=== PATIENT | male | born 1970 | race Caucasian/White ===

== ENCOUNTER 2022-02-11 10:10 | Inpatient (IN) | payer OTHER ==
[~2022-02-11] VITALS: Ht 167.6 cm; Wt 91.9 kg
[2022-02-11 11:01] LABS: BASO # 0.1 x10^3/uL (0.0-0.2); BASO % 1 % (0-3); EOS # 0.3 x10^3/uL (0.0-0.7); EOS % 3 % (0-3); HEMATOCRIT 39.1 % (39.0-53.0); HEMOGLOBIN 13.1 g/dL (13.0-17.5); LYMPH # 1.4 x10^3/uL (1.0-4.8); LYMPH % 14 % (24-48); MEAN CORPUSCULAR HEMOGLOBIN 28 pg (25-35); MEAN CORPUSCULAR HGB CONC 34 g/dL (31-37); MEAN CORPUSCULAR VOLUME 82 fL (79-100); MONO # 0.9 x10^3/uL (0.0-1.1); MONO % 10 % (0-9); NEUT # 6.9 x10^3/uL (1.8-7.7); NEUT % 72 % (31-73); PLATELET COUNT 268 x10^3/uL (140-400); RED BLOOD COUNT 4.75 x10^6/uL (4.30-5.70); RED CELL DISTRIBUTION WIDTH 14.2 % (11.5-14.5); WHITE BLOOD COUNT 9.7 x10^3/uL (4.0-11.0)
[2022-02-11 11:15] LABS: CREATININE 1.1 mg/dL (0.7-1.3); GFR 70.9
[2022-02-11 11:19] LABS: ACETAMIN < 2 mcg/ml (10-30); ETHANOL < 10 mg/dL (0-10)
[2022-02-11 11:22] LABS: ALBUMIN 3.7 g/dL (3.4-5.0); ALBUMIN/GLOBULIN RATIO 0.7 (1.0-1.7); TOTAL BILIRUBIN 0.4 mg/dL (0.2-1.0); TOTAL PROTEIN 8.9 g/dL (6.4-8.2)
[2022-02-11 11:35] LABS: BARBITURATES NEG (NEG); BENZODIAZEPINES POS (NEG); CANNABINOIDS NEG (NEG); COCAINE NEG (NEG); METHADONE NEG (NEG); OPIATES NEG (NEG); PHENCYCLIDINE NEG (NEG)
[2022-02-11 11:36] LABS: AMPHETAMINE/METHAMPHETAMINE NEG (NEG); HYALINE CASTS, URINE MODERATE /HPF
[2022-02-11 11:37] LABS: BACTERIA,URINE 0 /HPF (0-FEW); RBC,URINE 0 /HPF (0-2)
[2022-02-11] MEDS ORDERED: OLANZapine IM 10 MG VIAL. IM ONE (12:30)
--- NOTE | 2022-02-11 12:31 | PHYS DOC ---
Past Medical History Past Surgical History: Coronary Bypass Surgery Smoking Status: Former Smoker Alcohol Use: Sober Additional Information: sober x1 month due to being in a facility. Social History Narrative: Sober x1 month due to being in facility General Adult EDM: Chief Complaint: MEDICAL CLEARANCE HPI: HPI: Patient is a 51 year old male who presents with grandiose thoughts. Patient left AGAINST MEDICAL ADVICE from [facility] down the street from our facility. Patient states that he is looking for his cell phone and other possessions that he lost when he had a CABG done last month. Patient states that he does not want to stay however patient was seen and evaluated in the emergency department by myself. Patient with grandiose thoughts stating that he created infinite energy that is located at his house. Reportedly, patient was being seen for rehab at [facility] after a CABG. Patient making multiple odd statements, stating that people are persecuting him and pursuing him. 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 Patient states he does not have a psychiatrist however he almost is 1. Patient states that he would just like to go home, however, given patient's mental state and reportedly that he does not have utilities at his house, I thought it would be necessary to evaluate him prior to deciding disposition. Review of Systems: Review of Systems: Constitutional: Denies fever or chills. [] Eyes: Denies change in visual acuity. [] HENT: Denies nasal congestion or sore throat. [] Respiratory: Denies cough or shortness of breath. [] Cardiovascular: Denies chest pain or edema. [] GI: Denies abdominal pain, nausea, vomiting, bloody stools or diarrhea. [] : Denies dysuria. [] Musculoskeletal: Denies back pain or joint pain. [] Integument: Denies rash. [] Neurologic: Denies headache, focal weakness or sensory changes. [] Endocrine: Denies polyuria or polydipsia. [] Lymphatic: Denies swollen glands. [] Psychiatric: Denies depression or anxiety. [] Heart Score: C/O Chest Pain: No Risk Factors: Risk Factors: DM, Current or recent (<one month) smoker, HTN, HLP, family history of CAD, obesity. Risk Scores: Score 0 - 3: 2.5% MACE over next 6 weeks - Discharge Home Score 4 - 6: 20.3% MACE over next 6 weeks - Admit for Clinical Observation Score 7 - 10: 72.7% MACE over next 6 weeks - Early Invasive Strategies Allergies: Allergies: Allergies Coded Allergies Type Severity Reaction Last Updated Verified No Known Drug Allergies 02/11/22 No Physical Exam: PE: Constitutional: Well developed, well nourished, no acute distress, non-toxic appearance. [] HENT: Normocephalic, atraumatic, bilateral external ears normal, oropharynx moist, no oral exudates, nose normal. [] Eyes: PERRLA, EOMI, conjunctiva normal, no discharge. [] Neck: Normal range of motion, no tenderness, supple, no stridor. [] Cardiovascular:Heart rate regular rhythm, no murmur [] Lungs & Thorax: Bilateral breath sounds clear to auscultation [] Abdomen: Bowel sounds normal, soft, no tenderness, no masses, no pulsatile masses. [] Skin: Warm, dry, no erythema, no rash. [] Back: No tenderness, no CVA tenderness. [] Extremities: No tenderness, no cyanosis, no clubbing, ROM intact, no edema. [] Neurologic: Alert and oriented X 3, normal motor function, normal sensory function, no focal deficits noted. [] Psychologic: Affect flat, judgement poor, mood normal. [] Current Patient Data: Labs: Laboratory Tests Test 02/11/22 10:50 02/11/22 11:20 White Blood Count 9.7 x10^3/uL (4.0-11.0) Red Blood Count 4.75 x10^6/uL (4.30-5.70) Hemoglobin 13.1 g/dL (13.0-17.5) Hematocrit 39.1 % (39.0-53.0) Mean Corpuscular Volume 82 fL (79-100) Mean Corpuscular Hemoglobin 28 pg (25-35) Mean Corpuscular Hemoglobin Concent 34 g/dL (31-37) Red Cell Distribution Width 14.2 % (11.5-14.5) Platelet Count 268 x10^3/uL (140-400) Neutrophils (%) (Auto) 72 % (31-73) Lymphocytes (%) (Auto) 14 % (24-48) L Monocytes (%) (Auto) 10 % (0-9) H Eosinophils (%) (Auto) 3 % (0-3) Basophils (%) (Auto) 1 % (0-3) Neutrophils # (Auto) 6.9 x10^3/uL (1.8-7.7) Lymphocytes # (Auto) 1.4 x10^3/uL (1.0-4.8) Monocytes # (Auto) 0.9 x10^3/uL (0.0-1.1) Eosinophils # (Auto) 0.3 x10^3/uL (0.0-0.7) Basophils # (Auto) 0.1 x10^3/uL (0.0-0.2) Sodium Level 142 mmol/L (136-145) Potassium Level 4.0 mmol/L (3.5-5.1) Chloride Level 100 mmol/L (98-107) Carbon Dioxide Level 31 mmol/L (21-32) Anion Gap 11 (6-14) Blood Urea Nitrogen 14 mg/dL (8-26) Creatinine 1.1 mg/dL (0.7-1.3) Estimated GFR (Cockcroft-Gault) 70.9 BUN/Creatinine Ratio 13 (6-20) Glucose Level 106 mg/dL (70-99) H Calcium Level 10.0 mg/dL (8.5-10.1) Total Bilirubin 0.4 mg/dL (0.2-1.0) Aspartate Amino Transferase (AST) 31 U/L (15-37) Alanine Aminotransferase (ALT) 21 U/L (16-63) Alkaline Phosphatase 129 U/L (46-116) H Total Protein 8.9 g/dL (6.4-8.2) H Albumin 3.7 g/dL (3.4-5.0) Albumin/Globulin Ratio 0.7 (1.0-1.7) L Thyroid Stimulating Hormone (TSH) 6.438 uIU/mL (0.358-3.74) H Acetaminophen Level < 2 mcg/ml (10-30) L Acetaminophen Last Dose Date Unknown Acetaminophen Last Dose Time Unknown Ethyl Alcohol Level < 10 mg/dL (0-10) Urine Collection Type Void Urine Color (Auto) Light yellow Urine Turbidity Clear Urine pH (Auto) 7.0 (<5.0-8.0) Urine Specific [place] 1.009 (1.000-1.030) Urine Protein (Auto) 50 mg/dL (Negative) Urine Glucose (Auto)(UA) Negative mg/dL (Negative) Urine Ketones (Auto) Negative mg/dL (Negative) Urine Blood (Auto) Negative (Negative) Urine Nitrite (Auto) Negative (Negative) Urine Bilirubin (Auto) Negative (Negative) Urine Urobilinogen (Auto) Normal mg/dL (Normal) Urine Leukocyte Esterase (Auto) Negative (Negative) Urine RBC 0 /HPF (0-2) Urine WBC 1-4 /HPF (0-4) Urine Squamous Epithelial Cells Few /LPF Urine Bacteria 0 /HPF (0-FEW) Urine Hyaline Casts Moderate /HPF Urine Opiates Screen Neg (NEG) Urine Methadone Screen Neg (NEG) Urine Barbiturates Neg (NEG) Urine Phencyclidine Screen Neg (NEG) Urine Amphetamine/Methamphetamine Neg (NEG) Urine Benzodiazepines Screen Pos (NEG) Urine Cocaine Screen Neg (NEG) Urine Cannabinoids Screen Neg (NEG) Urine Ethyl Alcohol Neg (NEG) Laboratory Tests 02/11/22 10:50 Laboratory Tests 02/11/22 10:50 Vital Signs: Vital Signs Date Time Temp Pulse Resp B/P (MAP) Pulse Ox O2 Delivery O2 Flow Rate FiO2 02/11/22 11:15 79 16 154/88 (110) 99 Room Air 02/11/22 10:23 98.1 98.1 EKG: EKG: [] Radiology/Procedures: Radiology/Procedures: [] Impression: Acute psychosis Course & Med Decision Making: Course & Med Decision Making Pertinent Labs and Imaging studies reviewed. (See chart for details) Seen and evaluated by myself, 51-year-old male with undiagnosed psychiatric illness according to patient, making grandiose statements thoughts of grandeur, flight of ideas, patient not safe for discharge home. Patient will be admitted to our facility for further management as well as safe discharge. Patient is not homeless, however he is not stable enough to go home at this moment. Patient agreed to admission. Patient admitted to Dr. Emerson service. Patient hemodynamically stable at the time of admission. Dragon Disclaimer: Dragon Disclaimer: This electronic medical record was generated, in whole or in part, using a voice recognition dictation system. GABRIEL TORRES MD February 11, 2022 12:31
--- NOTE | 2022-02-11 12:48 | NUR ---
SS following for discharge planning. SS reviewed pt chart and discussed with RN. Pt left AMA from [facility]. Pt 1:1. SS was notified that pt was 1:[address] [facility]. SS met with pt in room. Pt ad monika and requires no assistive device. Pt able to report that he is in the hospital and lives in [place], [place]. Pt speaking with SS appropriately. Pt stating that he is going home and will not be admitted unless he is agreeable to be admitted. Pt stating that he needs to get home. Dr. Looney called and requested that [facility] team evaluate pt. Dr. Looney requesting that pt be admitted to [facility]. PAT team referral made and Byron coming to see pt. RN notified that pt is elopement risk. SS was notified that pt is moving to room 512. SS requested that 5th floor RN be notified in report that pt is elopement risk. Case asset management analyst notified. SS will continue to follow for discharge planning. Addendum: 02/11/22 at 1450 by FATOU HOFFMAN SS Byron from PAT team met with pt. Pt has no documented psych history and has not been seen outpatient for mental health. Byron reported that we would need to initiate a state screen to proceed further. Byron initiating state screen today. Pt politely requesting that Dr. Looney not be associated with his case. Dr. Emerson notified.
[2022-02-11 14:44] VITALS: BP 126/91
--- NOTE | 2022-02-11 15:09 | NUR ---
While doing admission assessment, rapid of covid was requested. Patient was informed of covid swab, and stated "If I find out I have covid, I'm going to jump out the window." Patient worried about medications and what might be in them.
--- NOTE | 2022-02-11 15:51 | PDOC1 ---
History and Physical Date of Admission Date of Admission DATE: 02/11/22 TIME: 15:51 Identification/Chief Complaint Chief Complaint Bizarre behavior Source Source: Caregiver, Chart review, Patient History of Present Illness History of Present Illness Mr Jc is a 51yo [employer] with PMHx alcohol use disorder, HTN, nephrolithiasis, marijuana alcohol abuse, recent ascending aortic dissection who was transferred from [facility] to [facility] on 12/18/2021 and treated for aortic dissection with Isma arch aortic replacement 26 mm graft, suspension aortic valve. With prolonged ventilatory stay and alcohol withdrawal treated for E. coli pneumonia and staph bacteremia and underwent tracheostomy on 01/02/2022 still with ventilatory wean developed a left-sided pleural effusion and chest tube placement showed significant impulsivity and was transferred to [facility] on 01/09/2022 for further vent weaning. His tracheostomy was downsized and decannulated and continue to recuperate at [facility] but showed significant impulsivity and exhibited bizarre behavior He eloped from [facility] and ran across the parking lot to our medical facility He was brought down to ED after he was found in administrative offices trying to make a phone call to have someone assist him in regrowing his teeth. In ED was noted with grandiose thoughts stating that he created infinite energy that is located at his house. He noted to ED people were persecuting him and pursuing him. He noted he has been practicing Western medicine on himself to help remove the infection from his abdomen continues to point to a small umbilical hernia. 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 Labs with WBC 9.7, Hb 13.1, platelets 268, TSH 6.4, glucose 155, albumin 3.7, LFTs within normal laboratory limits, NA 142, K4, BUN 14, CR 1.1 urine drug screen positive for benzodiazepines urinalysis bland, rapid COVID-19 negative. Past Medical History Cardiovascular: HTN Psych: Anxiety, Addictions, Depression, Panic Past Surgical History Past Surgical History Isma arch aortic replacement 26 mm graft, suspension aortic valve December 2021 Family History Family History: Hypertension Social History Smoke: 1 pack per day ALCOHOL: heavy (Whiskey up to half a liter per day) Drugs: Marijuana Current Problem List Problem List Problems Medical Problems: (1) Acute psychosis Status: Acute Current Medications Current Medications Current Medications Olanzapine (ZyPREXA IM) 10 mg 1X ONCE IM Last administered on 02/11/22at 12:45; Start 02/11/22 at 12:30; Stop 02/11/22 at 12:31; Status DC Allergies Allergies: Coded Allergies: No Known Drug Allergies (Unverified , 02/11/22) ROS General: No: Chills, Night Sweats, Fatigue, Malaise, Appetite, Other PSYCHOLOGICAL ROS: YES: Anxiety, Behavioral Disorder, Concentration difficultie , Decreased libido, Depression, Hallucinations, Irritablity, Memory difficulties , Mood Swings, Obsessive thoughts, Sleep disturbances; No: Disorientation, Hostility, Physical abuse, Sexual abuse, Suicidal ideation, Other Eyes: No Blurry vision, No Decreased vision, No Double vision, No Dry eyes, No Excessive tearing, No Eye Pain, No Itchy Eyes, No Loss of vision, No Photophobia, No Scotomata, No Uses contacts, No Uses glasses, No Other HEENT: No: Heacaches, Visual Changes, Hearing change, Nasal congestion, Nasal discharge, Oral lesions, Sinus pain, Sore Throat, Epistaxis, Sneezing, Snoring, Tinnitus, Vertigo, Vocal changes, Other ALLERGY AND IMMUNOLOGY: No: Hives, Insect Bite Sensitivity, Itchy/Watery Eyes, Nasal Congestion, Post Nasal Drip, Seasonal Allergies, Other Hematological and Lymphatic: No: Bleeding Problems, Blood Clots, Blood Trans fusions, Brusing, Night Sweats, Pallor, Swollen Lymph Nodes, Other ENDOCRINE: No: Breast Changes, Galactorrhea, Hair Pattern Changes, Hot Flashes, Malaise/lethargy, Mood Swings, Palpitations, Polydipsia/polyuria, Skin Changes, Temperature Intolerance, Unexpected Weight Changes, Other Breast: No New/Changing Breast Lumps, No Nipple changes, No Nipple discharge, No Other Respiratory: No: Cough, Hemoptysis, Orthopnea, Pleuritic Pain, Shortness of breath, SOB with excertion, Sputum Changes, Stridor, Tachypnea, Wheezing, Other Cardiovascular: No Chest Pain, No Palpitations, No Orthopnea, No Paroxysmal Noc. Dyspnea, No Edema, No Lt Headedness, No Other Gastrointestinal: Yes Abdominal Pain; No Nausea, No Vomiting, No Diarrhea, No Constipation, No Melena, No He matochezia, No Other Genitourinary: No Dysuria, No Frequency, No Incontinence, No Hematuria, No Retention, No Discharge, No Urgency, No Pain, No Flank Pain, No Other, No , No , No , No , No , No , No Musculoskeletal: Yes Gait Disturbance; No Joint Pain, No Joint Stiffness, No Joint Swelling, No Muscle Pain, No Musc ular Weakness, No Pain In:, No Swelling In:, No Other Neurological: No Behavorial Changes, No Bowel/Bladder ControlChng, No Confusion, No Dizziness, No Gait Disturbance, No Headaches, No Impaired Coord/balance, No Memory Loss, No Numbness/Tingling, No Seizures, No Speech Problems, No Tremors, No Visual Changes, No Weakness, No Other Skin: No Dry Skin, No Eczema, No Hair Changes, No Lumps, No Mole Changes, No Mottling, No Nail Changes, No Pruritus, No Rash, No Skin Lesion Changes, No Other, No Acne Physical Exam General: Alert, Cooperative, No acute distress HEENT: Atraumatic, PERRLA, EOMI, Mucous membr. moist/pink Lungs: Clear to auscultation, Normal air movement Heart: S1S2, RRR, no thrills, no rubs, no gallops, no murmurs Abdomen: Normal bowel sounds, Soft, No tenderness, No hepatosplenomegaly, No masses, Other (Small medical hernia) Male Genitals Exam: normal genitalia, normal prostate Extremities: No clubbing, No cyanosis, Normal pulses, No tenderness/swelling, Other (Right calf 15.75 inches compared to left calf 14.75 inch) Skin: No rashes, No breakdown, No significant lesion Neuro: Normal gait, Normal speech, Strength at 5/5 X4 ext, Normal tone, Sensation intact, Cranial nerves 3-12 NL, Reflexes 2+ Psych/Mental Status: Other (Bizarre behavior, delusions of grandeur, persecute Kurt thoughts obsessive thoughts, tangential thinking circumferential thinking) Vitals Vitals Vital Signs Date Time Temp Pulse Resp B/P (MAP) Pulse Ox O2 Delivery O2 Flow Rate FiO2 02/11/22 14:44 105 22 126/91 (103) Room Air 02/11/22 12:45 99 02/11/22 10:23 98.1 98.1 Labs Labs Laboratory Tests Test 02/11/22 10:50 02/11/22 11:20 02/11/22 14:36 White Blood Count 9.7 x10^3/uL (4.0-11.0) Red Blood Count 4.75 x10^6/uL (4.30-5.70) Hemoglobin 13.1 g/dL (13.0-17.5) Hematocrit 39.1 % (39.0-53.0) Mean Corpuscular Volume 82 fL (79-100) Mean Corpuscular Hemoglobin 28 pg (25-35) Mean Corpuscular Hemoglobin Concent 34 g/dL (31-37) Red Cell Distribution Width 14.2 % (11.5-14.5) Platelet Count 268 x10^3/uL (140-400) Neutrophils (%) (Auto) 72 % (31-73) Lymphocytes (%) (Auto) 14 % (24-48) Monocytes (%) (Auto) 10 % (0-9) Eosinophils (%) (Auto) 3 % (0-3) Basophils (%) (Auto) 1 % (0-3) Neutrophils # (Auto) 6.9 x10^3/uL (1.8-7.7) Lymphocytes # (Auto) 1.4 x10^3/uL (1.0-4.8) Monocytes # (Auto) 0.9 x10^3/uL (0.0-1.1) Eosinophils # (Auto) 0.3 x10^3/uL (0.0-0.7) Basophils # (Auto) 0.1 x10^3/uL (0.0-0.2) Sodium Level 142 mmol/L (136-145) Potassium Level 4.0 mmol/L (3.5-5.1) Chloride Level 100 mmol/L (98-107) Carbon Dioxide Level 31 mmol/L (21-32) Anion Gap 11 (6-14) Blood Urea Nitrogen 14 mg/dL (8-26) Creatinine 1.1 mg/dL (0.7-1.3) Estimated GFR (Cockcroft-Gault) 70.9 BUN/Creatinine Ratio 13 (6-20) Glucose Level 106 mg/dL (70-99) Calcium Level 10.0 mg/dL (8.5-10.1) Total Bilirubin 0.4 mg/dL (0.2-1.0) Aspartate Amino Transf (AST/SGOT) 31 U/L (15-37) Alanine Aminotransferase (ALT/SGPT) 21 U/L (16-63) Alkaline Phosphatase 129 U/L (46-116) Total Protein 8.9 g/dL (6.4-8.2) Albumin 3.7 g/dL (3.4-5.0) Albumin/Globulin Ratio 0.7 (1.0-1.7) Thyroid Stimulating Hormone (TSH) 6.438 uIU/mL (0.358-3.74) Acetaminophen Level < 2 mcg/ml (10-30) Acetaminophen Last Dose Date Unknown Acetaminophen Last Dose Time Unknown Ethyl Alcohol Level < 10 mg/dL (0-10) Urine Collection Type Void Urine Color (Auto) Light yellow Urine Turbidity Clear Urine pH (Auto) 7.0 (<5.0-8.0) Urine Specific [place] 1.009 (1.000-1.030) Urine Protein (Auto) 50 mg/dL (Negative) Urine Glucose (Auto)(UA) Negative mg/dL (Negative) Urine Ketones (Auto) Negative mg/dL (Negative) Urine Blood (Auto) Negative (Negative) Urine Nitrite (Auto) Negative (Negative) Urine Bilirubin (Auto) Negative (Negative) Urine Urobilinogen (Auto) Normal mg/dL (Normal) Urine Leukocyte Esterase (Auto) Negative (Negative) Urine RBC 0 /HPF (0-2) Urine WBC 1-4 /HPF (0-4) Urine Squamous Epithelial Cells Few /LPF Urine Bacteria 0 /HPF (0-FEW) Urine Hyaline Casts Moderate /HPF Urine Opiates Screen Neg (NEG) Urine Methadone Screen Neg (NEG) Urine Barbiturates Neg (NEG) Urine Phencyclidine Screen Neg (NEG) Urine Amphetamine/Methamphetamine Neg (NEG) Urine Benzodiazepines Screen Pos (NEG) Urine Cocaine Screen Neg (NEG) Urine Cannabinoids Screen Neg (NEG) Urine Ethyl Alcohol Neg (NEG) SARS-CoV-2 Antigen (Rapid) Negative (NEGATIVE) Laboratory Tests Test 02/11/22 10:50 02/11/22 11:20 02/11/22 14:36 White Blood Count 9.7 x10^3/uL (4.0-11.0) Red Blood Count 4.75 x10^6/uL (4.30-5.70) Hemoglobin 13.1 g/dL (13.0-17.5) Hematocrit 39.1 % (39.0-53.0) Mean Corpuscular Volume 82 fL (79-100) Mean Corpuscular Hemoglobin 28 pg (25-35) Mean Corpuscular Hemoglobin Concent 34 g/dL (31-37) Red Cell Distribution Width 14.2 % (11.5-14.5) Platelet Count 268 x10^3/uL (140-400) Neutrophils (%) (Auto) 72 % (31-73) Lymphocytes (%) (Auto) 14 % (24-48) Monocytes (%) (Auto) 10 % (0-9) Eosinophils (%) (Auto) 3 % (0-3) Basophils (%) (Auto) 1 % (0-3) Neutrophils # (Auto) 6.9 x10^3/uL (1.8-7.7) Lymphocytes # (Auto) 1.4 x10^3/uL (1.0-4.8) Monocytes # (Auto) 0.9 x10^3/uL (0.0-1.1) Eosinophils # (Auto) 0.3 x10^3/uL (0.0-0.7) Basophils # (Auto) 0.1 x10^3/uL (0.0-0.2) Sodium Level 142 mmol/L (136-145) Potassium Level 4.0 mmol/L (3.5-5.1) Chloride Level 100 mmol/L (98-107) Carbon Dioxide Level 31 mmol/L (21-32) Anion Gap 11 (6-14) Blood Urea Nitrogen 14 mg/dL (8-26) Creatinine 1.1 mg/dL (0.7-1.3) Estimated GFR (Cockcroft-Gault) 70.9 BUN/Creatinine Ratio 13 (6-20) Glucose Level 106 mg/dL (70-99) Calcium Level 10.0 mg/dL (8.5-10.1) Total Bilirubin 0.4 mg/dL (0.2-1.0) Aspartate Amino Transf (AST/SGOT) 31 U/L (15-37) Alanine Aminotransferase (ALT/SGPT) 21 U/L (16-63) Alkaline Phosphatase 129 U/L (46-116) Total Protein 8.9 g/dL (6.4-8.2) Albumin 3.7 g/dL (3.4-5.0) Albumin/Globulin Ratio 0.7 (1.0-1.7) Thyroid Stimulating Hormone (TSH) 6.438 uIU/mL (0.358-3.74) Acetaminophen Level < 2 mcg/ml (10-30) Acetaminophen Last Dose Date Unknown Acetaminophen Last Dose Time Unknown Ethyl Alcohol Level < 10 mg/dL (0-10) Urine Collection Type Void Urine Color (Auto) Light yellow Urine Turbidity Clear Urine pH (Auto) 7.0 (<5.0-8.0) Urine Specific [place] 1.009 (1.000-1.030) Urine Protein (Auto) 50 mg/dL (Negative) Urine Glucose (Auto)(UA) Negative mg/dL (Negative) Urine Ketones (Auto) Negative mg/dL (Negative) Urine Blood (Auto) Negative (Negative) Urine Nitrite (Auto) Negative (Negative) Urine Bilirubin (Auto) Negative (Negative) Urine Urobilinogen (Auto) Normal mg/dL (Normal) Urine Leukocyte Esterase (Auto) Negative (Negative) Urine RBC 0 /HPF (0-2) Urine WBC 1-4 /HPF (0-4) Urine Squamous Epithelial Cells Few /LPF Urine Bacteria 0 /HPF (0-FEW) Urine Hyaline Casts Moderate /HPF Urine Opiates Screen Neg (NEG) Urine Methadone Screen Neg (NEG) Urine Barbiturates Neg (NEG) Urine Phencyclidine Screen Neg (NEG) Urine Amphetamine/Methamphetamine Neg (NEG) Urine Benzodiazepines Screen Pos (NEG) Urine Cocaine Screen Neg (NEG) Urine Cannabinoids Screen Neg (NEG) Urine Ethyl Alcohol Neg (NEG) SARS-CoV-2 Antigen (Rapid) Negative (NEGATIVE) VTE Prophylaxis Ordered VTE Prophylaxis Devices: No VTE Pharmacological Prophylaxi: Yes Assessment/Plan Assessment/Plan Acute psychotic episode -no known history of schizophrenia schizoaffective disorder bipolar disorder but clearly patient is exhibiting delusions of grandeur prosecutorial thoughts, circumferential and tangential thinking pressured speech very difficult to redirect. He is not exhibiting any violent behavior or any suicidal thoughts. He was being medicated on Seroquel and h aloperidol and seen by psychiatry at [facility] but eloped. He needs formal psychiatric evaluation likely inpatient psychiatric care. He likely has PTSD Right leg swelling -we will obtain venous Doppler to rule out DVT. HTN -afterload reduction important given his recent aortic dissection Ascending aortic dissection - s/p endograft repair december 2021 Alcohol use disorder -drinks whiskey heavily at home. Went through alcohol withdrawal 2 months ago Smoker -continues to request cigarettes will offer nicotine patch. Abdominal cramping -offered dicyclomine sent he would like the infection removed. Have instructed him there is no infection he has a small umbilical hernia that is easily reducible. He wants something for bowel regularity offered psyllium husk as he is expressed that he wants only "natural therapy" FEN - Cardiac diet PPX - heparin FULL CODE Dispo -psychotic episode needs psychiatric care. Justifications for Admission Other Justification ORIANA IVEY MD February 11, 2022 15:51
[2022-02-11] MEDS ORDERED: LORazepam 0.5 MG TABLET PO PRN (16:00)
[2022-02-11] MEDS ORDERED: ONDANSETRON PF 4 MG/2 ML VIAL. IVP PRN (16:00)
[2022-02-11] MEDS ORDERED: guaiFENesin DM 200MG/20MG 10 ML SYRUP PO PRN (16:00)
[2022-02-11] MEDS ORDERED: ACETAMINOPHEN 325 MG TABLET. PO PRN (16:00)
[2022-02-11] MEDS ORDERED: hydrALAZINE 20 MG/ML VIAL. IVP PRN (16:00)
[2022-02-11] MEDS: MAGNESIUM OXIDE 400 MG TABLET PO SCH (18:21)
[2022-02-11] MEDS: GABAPENTIN 300 MG CAPSULE. PO SCH ×2 (18:21→19:36)
[2022-02-11] MEDS ORDERED: POLY2500 PO (18:42)
[2022-02-11] MEDS ORDERED: FAMO20TA5 PO (18:42)
[2022-02-11] MEDS ORDERED: DIAZ5TAB4 PO (18:42)
[2022-02-11] MEDS ORDERED: QUET25TA5 PO (18:42)
[2022-02-11] MEDS ORDERED: QUET50TA5 PO (18:42)
[2022-02-11] MEDS ORDERED: ASPI81TA59 PO (18:42)
[2022-02-11] MEDS ORDERED: CLON0.1T PO (18:42)
[2022-02-11] MEDS ORDERED: CARV3.1210 PO (18:42)
[2022-02-11] MEDS ORDERED: LIDO700A21 TP (18:42)
[2022-02-11] MEDS ORDERED: ALBU2.5V5 NEB (18:57)
[2022-02-11] MEDS ORDERED: SERT20OR3 PO (18:57)
[2022-02-11] MEDS ORDERED: HYDR-2867 PO (18:57)
[2022-02-11] MEDS ORDERED: HALO2TAB PO (18:57)
[2022-02-11] MEDS ORDERED: ACET500T68 PO (18:57)
[2022-02-11] MEDS ORDERED: SENN-142 PO (18:57)
[2022-02-11 19:00] VITALS: BP 129/73
[2022-02-11] MEDS: DICLOFENAC SODIUM 1% TOPICAL GEL 100GM TUBE. TP SCH (19:35)
[2022-02-11] MEDS ORDERED: PSYLLIUM HUSK (SUGAR FREE) 1 PKT PACKET PO SCH (21:00)
[2022-02-11 23:00] VITALS: BP 169/98
[2022-02-12] MEDS ORDERED: NICOTINE 14MG PATCH. TD SCH ×2 (00:05→09:00)
[2022-02-12] MEDS ORDERED: HALOPERIDOL 2 MG TABLET. PO PRN (06:30)
[2022-02-12 07:34] VITALS: BP 157/90
[2022-02-12] MEDS ORDERED: CARVEDILOL 3.125 MG TABLET. PO SCH (08:00)
--- NOTE | 2022-02-12 08:30 | NUR ---
PATIENT ALERT AND VERBALLY RESPONSIVE, SITTING UP IN BED WITH 1;1 SITTER AT THE BEDSIDE, DENIES PAIN AT THIS TIME BUT REPORT OCCASIONAL DISCOMFORT IN HIS RIGHT LOWER EXTREMITY. PATIENT DOES NOT VOICE CONCERNS OF LEAVING THE HOSPITAL, NO WALKING TO THE DOORWAY, PUTTING ON CLOTHES, GATHERING BELONGINGS ETC. PATIENT TO BE SEEN BY THE PAT TEAM TODAY, WILL MONITOR.
[2022-02-12] MEDS: GABAPENTIN 300 MG CAPSULE. PO SCH (08:47)
[2022-02-12] MEDS: MAGNESIUM OXIDE 400 MG TABLET PO SCH (08:48)
[2022-02-12] MEDS: hydrALAZINE 10 MG TABLET PO SCH ×2 (08:48→12:47)
[2022-02-12] MEDS: DICLOFENAC SODIUM 1% TOPICAL GEL 100GM TUBE. TP SCH (08:55)
[2022-02-12] MEDS ORDERED: POLYETHYLENE GLYCOL 3350 17 GM PACKET. PO PRN (09:00)
[2022-02-12] MEDS ORDERED: FAMOTIDINE 20 MG TABLET. PO SCH (09:00)
[2022-02-12] MEDS ORDERED: cloNIDine HCL 0.1 MG TABLET PO SCH (09:00)
[2022-02-12] MEDS ORDERED: SERTRALINE 25 MG TABLET. PO SCH (09:00)
--- NOTE | 2022-02-12 09:19 | RAD ---
EXAM: Right lower extremity venous Doppler sonogram. HISTORY: Pain and swelling. TECHNIQUE: Yun scale and color Doppler sonographic evaluation of the right lower extremity veins wit h spectral waveform analysis was performed. FINDINGS: There is normal color flow, normal compressibility and there are normal spectral waveforms in the common femoral, superficial femoral, popliteal, posterior tibial and greater saphenous veins. IMPRESSION: No Doppler evidence of lower extremity deep venous thrombosis. Electronically signed by: Maia Arana MD (02/12/2022 9:16 AM) [id number]
[2022-02-12] MEDS ORDERED: GABA300C18 PO (10:55)
--- NOTE | 2022-02-12 10:56 | DISCH ---
DISCHARGE INSTRUCTIONS Condition on Discharge Condition on Discharge: Stable Activity After Discharge Activity Instructions for Disc: Activity as tolerated Lifting Instructions after Dis: Do not lift >10 pounds Exercise Instruction after Dis: Walk 30 min, 3 x per week Driving Instructions after Dis: Do not drive today Weight Bearing Status after Di: Full weight bearing Diet after Discharge Diet after Discharge: Cardiac Checks after Discharge DC Comment: Will need your TSH checked in 4 weeks Follow-Up Follow up with: PCP within 2 weeks of discharge to manage your thyroid Follow Up With: Psychiatrist within 2 weeks of discharge ZOILA CORBETT MD February 12, 2022 10:56
[2022-02-12 11:00] VITALS: BP 171/77
--- NOTE | 2022-02-12 11:45 | NUR ---
SS following up with discharge planning. SS reviewed pt chart and discussed with pt RN. Pt is currently on room air. Pt ambulatory. Pt was screened by the [facility] this morning and was cleared. No history of Mental Health or SI found. Per RN, pt was fine overnight with no behaviors. Pt much more clear today. Anusha sent over safety plan for pt for home. Copy provided to pt and placed in chart. DCF hotline report was made for concerns with safety and mental health, intake# [id number]. 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 Pt reported that [facility] will arrange transportation to home for him. Transportation to the [facility] scheduled through [facility] between 1300 and 1330. Pt's RN and physician notified.
[2022-02-12] MEDS ORDERED: LEVO75TA5 PO (12:32)
[2022-02-12 12:47] VITALS: BP 171/77
--- NOTE | 2022-02-12 13:10 | NUR ---
Discharge instructions given to the Patient, questions and concerns answered, patient verbalized understanding of discharge information including taking all medications as instructed and following up with his primary provider in 1-2 weeks. safety plan given to patients as weel as discharge paperwork.
--- NOTE | 2022-02-12 13:31 | NUR ---
Patient leaves the unit per w/c and accompanied by [employer] dedicated regional driver, emotional support given, follow up appointments encouraged.
[2022-02-12] MEDS ORDERED: QUEtiapine 25 MG TABLET. PO SCH (21:00)
[2022-02-13] MEDS ORDERED: LEVOTHYROXINE 75 MCG TABLET PO SCH (06:00)
--- NOTE | 2022-02-15 12:42 | PDOC3 ---
[facility]-Discharge Summary Date of Admission: Date of Admission: February 11, 2022 Date of Discharge: Date of Discharge: February 12, 2022 Discharge Diagnosis: Discharge Diagnosis: Acute psychotic episode -no known history of schizophrenia schizoaffective disorder bipolar disorder but clearly patient is exhibiting delusions of grandeur prosecutorial thoughts, circumferential and tangential thinking press ured speech very difficult to redirect. He is not exhibiting any violent behavior or any suicidal thoughts. He was being medicated on Seroquel and haloperidol and seen by psychiatry at [facility] but eloped. He needs formal psychiatric evaluation likely inpatient psychiatric care. He likely has PTSD Right leg swelling -we will obtain venous Doppler to rule out DVT. HTN -afterload reduction important given his recent aortic dissection Ascending aortic dissection - s/p endograft repair december 2021 Alcohol use disorder -drinks whiskey heavily at home. Went through alcohol withdrawal 2 months ago Smoker -continues to request cigarettes will offer nicotine patch. Abdominal cramping -offered dicyclomine sent he would like the infection removed. Have instructed him there is no infection he has a small umbilical hernia that is easily reducible. He wants something for bowel regularity offere d psyllium husk as he is expressed that he wants only "natural therapy" Hypothyroidism Hospital Course: Hospital Course: 51yo [employer] [facility] with PMHx alcohol use disorder, HTN, nephrolithiasis, marijuana alcohol abuse, recent ascending aortic dissection who was transferred from [facility] to [facility] on 12/18/2021 and treated for aortic dissection with Isma arch aortic replacement 26 mm graft, suspension aortic valve. With prolonged ventilatory stay and alcohol withdrawal treated for E. coli pneumonia and staph bacteremia and underwent tracheostomy on 01/02/2022 still with ventilatory wean developed a left-sided pleural effusion and chest tube placement showed significant impulsivity and was transferred to [facility] hospital on 01/09/2022 for further vent weaning. His tracheostomy was downsized and decannulated and continue to recuperate at [facility] but showed significant impulsivity and exhibited bizarre behavior He eloped from [facility] and ran across the parking lot to our medical facility He was brought down to ED after he was found in administrative offices trying to make a phone call to have someone assist him in regrowing his teeth. In ED was noted with grandiose thoughts stating that he created infinite energy that is located at his house. He noted to ED people were persecuting him and pursuing him. He noted he has been practicing Western medicine on himself to help remove the infection from his abdomen continues to point to a small umbilical hernia. 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 Labs with WBC 9.7, Hb 13.1, platelets 268, TSH 6.4, glucose 155, albumin 3.7, LFTs within normal laboratory limits, NA 142, K4, BUN 14, CR 1.1 urine drug screen positive for benzodiazepines urinalysis bland, rapid COVID-19 negative. On day of discharge, patient was clinically and mentally stable for discharge. He did not express any thoughts of harm towards himself or others. He does have some bizarre thinking where he thinks that his hernia has an alien growing himself and also the labs that I draw for him some computer simulation and testing. He was evaluated by the PAT team and they feel that he is safe for discharge with care by family. He does not require any inpatient psych On another note patient does require levothyroxine 75 mcg to start as he does have hypothyroidism. PCP will need to follow-up on dosing and repeat TSH needs to be completed in 4 weeks. Disposition: Disposition/Orders: D/C to Home Activity: Activity: Resume previous activity Diet: Diet: Regular Medications: Home Meds Active Scripts Levothyroxine Sodium (LEVOTHYROXINE SODIUM) 75 Mcg Tablet, 75 MCG PO DAILYAC for THYROID SUPPLEMENT, #30 TAB 0 Refills Prov:ZOILA CORBETT MD 02/12/22 Gabapentin (GABAPENTIN) 300 Mg Capsule, 300 MG PO TID for EtOH abuse for 7 Days, #21 CAP Prov:ZOILA CORBETT MD 02/12/22 Reported Medications Albuterol Sulfate (ALBUTEROL SULFATE NEB SOLN) 2.5 Mg/3 Ml Vial.neb, 1 VIAL NEB PRN Q4HRS for intubation, #50 VIAL 02/11/22 Hydralazine Hcl (HYDRALAZINE HCL) 10 Mg Tablet, 10 MG PO QID for htn, TAB 02/11/22 Haloperidol (HALOPERIDOL) 2 Mg Tablet, 1 TAB PO PRN Q4HRS PRN for AGITATION, #60 TAB 02/11/22 Acetaminophen (ACETAMINOPHEN) 500 Mg Tablet, 2 TAB PO PRN Q6HRS PRN for pain or fever for 15 Days, #60 TAB 0 Refills 02/11/22 Sertraline Hcl (SERTRALINE HCL ORAL CONC) 20 Mg/1 Ml Oral.conc, 25 MG PO DAILY for ANTI-DEPRESSANT, ML 0 Refills 02/11/22 Sennosides/Docusate Sodium (Senna-S Laxative Tablet) 1 Each Tablet, 2 TAB PO QHS for constipation for 14 Days, #28 TAB 0 Refills 02/11/22 Quetiapine Fumarate (SEROQUEL) 25 Mg Tablet, 0.5 TAB PO DAILY for encephalopathy, #30 TAB 2 Refills 02/11/22 Quetiapine Fumarate (SEROQUEL) 50 Mg Tablet, 1 TAB PO QHS for encephalopathy, #30 TAB 2 Refills 02/11/22 Lidocaine (Lidocaine PATCH ) 1 Each Adh..patch, 1 EACH TP DAILY for FOR LOCAL PAIN, PATCH REMOVE AFTER 12 HOURS 02/11/22 Famotidine (FAMOTIDINE) 20 Mg Tablet, 20 MG PO BID for gerd, TAB 02/11/22 Polyethylene Glycol 3350 (POLYETHYLENE GLYCOL 3350) 2,500 Gm Powder, 17 GM PO TX N PRN for CONSTIPATION, #255 GM 0 Refills 02/11/22 Diazepam (DIAZEPAM) 5 Mg Tablet, 5 MG PO QID for unknown, TAB 02/11/22 Clonidine Hcl (CLONIDINE HCL) 0.1 Mg Tablet, 0.1 MG PO BID for HTN, TAB 02/11/22 Carvedilol (CARVEDILOL ) 3.125 Mg Tablet, 3.125 MG PO BIDWMEALS for CARDIAC, TAB 02/11/22 Aspirin (Children's Aspirin) 81 Mg Tab.chew, 81 MG PO DAILY for cardiac, TAB.CHEW 02/11/22 Scheduled Albuterol Sulfate (Albuterol Sulfate Neb Soln), 1 VIAL NEB PRN Q4HRS, (Reported) Aspirin (Children's Aspirin), 81 MG PO DAILY, (Reported) Carvedilol (Carvedilol ), 3.125 MG PO BIDWMEALS, (Reported) Clonidine Hcl (Clonidine Hcl), 0.1 MG PO BID, (Reported) Diazepam (Diazepam), 5 MG PO QID, (Reported) Famotidine (Famotidine), 20 MG PO BID, (Reported) Gabapentin (Gabapentin), 300 MG PO TID Hydralazine Hcl (Hydralazine Hcl), 10 MG PO QID, (Reported) Levothyroxine Sodium (Levothyroxine Sodium), 75 MCG PO DAILYAC Lidocaine (Lidocaine PATCH ), 1 EACH TP DAILY, (Reported) Quetiapine Fumarate (Seroquel), 1 TAB PO QHS, (Reported) Quetiapine Fumarate (Seroquel), 0.5 TAB PO DAILY, (Reported) Sennosides/Docusate Sodium (Senna-S Laxative Tablet), 2 TAB PO QHS, (Reported) Sertraline Hcl (Sertraline Hcl Oral Conc), 25 MG PO DAILY, (Reported) Scheduled PRN Acetaminophen (Acetaminophen), 2 TAB PO PRN Q6HRS PRN for pain or fever, (Reported) Haloperidol (Haloperidol), 1 TAB PO PRN Q4HRS PRN for AGITATION, (Reported) Polyethylene Glycol 3350 (Polyethylene Glycol 3350), 17 GM PO PRN PRN for CONSTIPATION, (Reported) Total Time: Total Time: Total time spent was [] minutes in preparing scripts, discharge planning with SWI and RN and preparing this discharge summary Patient seen and examined on day of discharge. No acute abnormal findings. Justicifation of Admission Dx: Justifications for Admission: Justification of Admission Dx: Yes Altered Mental Status: Altered Mental Status ZOILA CORBETT MD February 15, 2022 12:42
== END 2022-02-12 13:31 | disposition home or self-care (01) | DRG 882 ==
LOC: ER 10:10 → 5 NORTH 12:11
PROVIDERS: ADMIT Internal Medicine; ATTEND Internal Medicine
DX: F43.10 Post-traumatic stress disorder, unspecified (principal); F23 Brief psychotic disorder; G93.40 Encephalopathy, unspecified; E03.9 Hypothyroidism, unspecified; F17.210 Nicotine dependence, cigarettes, uncomplicated; I10 Essential (primary) hypertension; K42.9 Umbilical hernia without obstruction or gangrene; Z20.822 Contact with and (suspected) exposure to COVID-19; Z82.49 Family history of ischemic heart disease and other diseases of the circulatory system; Z87.442 Personal history of urinary calculi; Z95.1 Presence of aortocoronary bypass graft; F32.A Depression, unspecified; F41.9 Anxiety disorder, unspecified
CPT/HCPCS: 36415; 80053; 80307; 80329; 81001; 82962; 84439; 84443; 85025; 87426; 93971; 96372; G0480; J3490; 99285-25; G0378